=== PATIENT | female | born 1960 | race Caucasian/White ===

== ENCOUNTER → 2024-12-20 | Outpatient (CLI) | payer BC, OTHER ==
--- NOTE | 2024-12-20 11:10 | CT ---
EXAMINATION TYPE: CT wrist RT wo con DATE OF EXAM: 12/20/2024 COMPARISON: None. CLINICAL INDICATION: Female, 64 years old with history of S52.551A fx distal radius R weist; PH[facility], DIS BEN RADIUS FX CT DLP: 144.70 mGycm Automated exposure control for dose reduction was used. FINDINGS: There is acute/subacute comminuted nondisplaced intra-articular fracture through the distal radial me ta-epiphysis extending into the joint space without bony fragmentation or significant bony protrusion . There is a minimally displaced 4 mm avulsion type fracture from the ulnar styloid. Carpal joint spaces are preserved. Overlying fiberglass cast material is present. IMPRESSION: As above. [facility], , 12/20/2024 11:08 AM
== END | disposition home or self-care (01) ==
LOC: RADCTMAIN 10:05
PROVIDERS: ATTEND Surgery Surgery of the Hand
DX: S52.551A Other extraarticular fracture of lower end of right radius, initial encounter for closed fracture (principal); S52.571A Other intraarticular fracture of lower end of right radius, initial encounter for closed fracture